=== PATIENT | male | born 1990 | race Caucasian/White ===

== ENCOUNTER 2019-08-05 08:02 | Emergency (ER) | payer OTHER, SELFPAY ==
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
[2019-08-05 08:04] VITALS: BP 140/66; PULSE 62; RESP 17; TEMP 36.9; O2SAT 97
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
== END 2019-08-05 09:20 | disposition home or self-care (01) ==
LOC: ANHED 09:24
PROVIDERS: Emergency Provider Emergency Medicine; PCP Family Medicine
DX: S50.02XA Contusion of left elbow, initial encounter (principal); S70.02XA Contusion of left hip, initial encounter; V49.40XA Driver injured in collision with unspecified motor vehicles in traffic accident, initial encounter
CPT/HCPCS: 73070; 73090; 73502; 73521; 99284

== ENCOUNTER 2021-05-07 13:45 | Outpatient (CLI) | payer OTHER, SELFPAY ==
[2021-05-07 13:58] LABS: Hematocrit 44.3 % (40.0-54.0); Hemoglobin 13.9 g/dL (14.0-18.0); Mean Corpuscular HGB Conc 31.4 g/dL (32.0-36.0); Mean Corpuscular Hemoglobin 22.6 pg (27.0-31.0); Mean Corpuscular Volume 72.1 fL (78.0-102.0); Mean Platelet Volume 8.9 fl (8.7-11.0); Platelet Count Result 245 K/mm3 (150-420); Red Blood Count 6.14 M/mm3 (4.70-6.10); White Blood Count 7.8 K/mm3 (4.8-10.8)
[2021-05-07 16:33] LABS: Alanine Aminotransferase 31 U/L (16-63); Albumin Level 4.4 g/dL (3.4-5.0); Alkaline Phosphatase 73 U/L (46-116); Anion Gap 11 mmol/L (8-16); Aspartate Amino Transferase 18 U/L (15-37); Bilirubin,Total 0.7 mg/dL (0.00-1.00); Blood Urea Nitrogen 11 mg/dL (7-18); Calcium 8.9 mg/dL (8.5-10.1); Carbon Dioxide 30 mmol/L (21-32); Chloride 101 mmol/L (98-108); Cholesterol 155 mg/dL (0-200); Estimated Glomerular Filt Rate > 60; Glucose 86 mg/dL (70-99); HDL Direct 45 mg/dL (40-60); LDL Cholesterol Calculated 82 mg/dL (<130); Osmolality Calculated 292 mOsm/kg (285-295); Potassium 4.1 mmol/L (3.5-5.1); Sodium 142 mmol/L (136-145); Total Protein 7.6 g/dL (6.4-8.2); Triglycerides 139 mg/dL (0-150)
[2021-05-07 16:53] LABS: Thyroid Stimulating Hormone Reflex 1.55 u/IU/mL (0.36-3.74)
== END 2021-05-07 13:46 | disposition home or self-care (01) ==
LOC: CHSLAB 13:50
PROVIDERS: PCP Family Medicine; Visit Provider Family Medicine
DX: Z00.00 Encounter for general adult medical examination without abnormal findings (principal); E11.9 Type 2 diabetes mellitus without complications
CPT/HCPCS: 36415; 80053; 80061; 84443; 85027

== ENCOUNTER 2021-06-28 07:39 | Outpatient (CLI) | payer OTHER, SELFPAY ==
--- NOTE | 2021-07-13 12:52 | WPDHOMESLEEP ---
Sleep Study - Home Unattended Date of Study: 06/28/21 <Winifred Longoria DO - Last Filed: 07/13/21 13:10> Ordering Provider: Kirk Agee DO <Winifred Longoria, DO - Last Filed: 07/13/21 13:10> Interpreting Provider: Winifred Longoria DO <Winifred Longoria, DO - Last Filed: 07/13/21 13:10> Home Sleep Study Type: Apnea Link Air <Winifred Longoria DO - Last Filed: 07/13/21 13:10> Height: 1.83 m <Winifred Longoria DO - Last Filed: 07/13/21 13:10> Weight: 108.862 kg <Winifred Longoria DO - Last Filed: 07/13/21 13:10> Body Mass Index: 32.5 <Winifred Longoria DO - Last Filed: 07/13/21 13:10> Neck Circumference (inches): 17 <Winifred Longoria DO - Last Filed: 07/13/21 13:10> [place]: 17 <Winifred Longoria DO - Last Filed: 07/13/21 13:10> Reason for Sleep Study Unrefreshing sleep, daytime somnolence, morning headaches and loud snoring <Winifred Longoria DO - Last Filed: 07/13/21 13:10> Sleep History The patient is a 31-year-old male with generalized anxiety disorder who had a home sleep test ordered by his primary care physician due to unrefreshing sleep and daytime somnolence. the patient was recently started on Zoloft 50 mg. the patient occasionally awakens from sleep short of breath. He occasionally awakens at night with heartburn, belching or cough. He frequently snores loud enough that others complain. He occasionally has trouble sleeping when he has a cold. He occasionally wakes up gasping for air throughout the night. He occasionally has breathing problems at night observed by others. He occasionally sweats excessively at night. He frequently notices heart palpitations or irregular beats throughout the night. He denies falling asleep during the day but occasionally falls asleep while driving. He denies sleep paralysis and cataplexy. He rarely experiences vivid dreamlike scenes upon awakening or falling asleep. He frequently feels afraid to go to sleep. He occasionally has nightmares. He occasionally remembers his dreams. He frequently has thoughts racing through his mind. He occasionally feels sad or depressed and is frequently anxious. He occasionally notices parts of his body jerk. He occasionally kicks during the night. He rarely experiences crawling and aching feelings in his legs as well as leg pain during the night. He frequently grinds his teeth during sleep and rarely wakes with jaw pain. He is rarely bothered by pain during the day but is occasionally awakened by pain during the night. He occasionally wakes up feeling stiff in the morning with sore and achy muscles. The patient goes to bed at 10:00 p.m. on the weekdays and 11:00 p.m. on the weekends. It takes him 30 minutes to fall asleep. He wakes up 5-10 times per night. When he awakens, he will toss and turn until he falls back asleep. He can fall asleep within a few minutes. He wakes up between 6 and 7:00 a.m. on the weekdays and 7:00 a.m. on the weekends. He usually gets 6 hours of sleep per night. He will stay in bed for 5 minutes after awakening in the morning. He currently lives with his and 3 sons. He does not consume any caffeinated beverages within 2 hours of going to bed. He does not engage in physical exercise before bedtime. He does watch television before falling asleep. He does not take naps in the afternoon or the evening. He drinks 1-2 caffeinated beverages per day. He quit smoking several years ago. He denies alcohol and recreational drug use. <Winifred Longoria DO - Last Filed: 07/13/21 13:10> [facility] Past Medical History Medical History: Medical History WAN (generalized anxiety disorder) <Winifred Longoria DO - Last Filed: 07/13/21 13:10> Surgical History Surgical History: Surgical History No history of
[2021-07-13 13:01] VITALS: BMI 32.5
== END 2021-06-29 10:39 | disposition home or self-care (01) ==
LOC: ANHCSM 07:40
PROVIDERS: PCP Family Medicine; Visit Provider Family Medicine
DX: G47.30 Sleep apnea, unspecified (principal); G47.33 Obstructive sleep apnea (adult) (pediatric)
CPT/HCPCS: 95806

== ENCOUNTER 2022-05-16 16:11 | Outpatient (CLI) | payer OTHER, SELFPAY ==
[2022-05-16 16:23] LABS: Hematocrit 40.9 % (40.0-54.0); Mean Corpuscular HGB Conc 31.8 g/dL (32.0-36.0); Mean Corpuscular Volume 72.4 fL (78.0-102.0); Mean Platelet Volume 8.4 fl (8.7-11.0); Platelet Count Result 221 K/mm3 (150-420); Red Blood Count 5.65 M/mm3 (4.70-6.10); White Blood Count 7.3 K/mm3 (4.8-10.8)
[2022-05-16 17:10] LABS: Alanine Aminotransferase 38 U/L (16-63); Albumin Level 4.2 g/dL (3.4-5.0); Alkaline Phosphatase 71 U/L (46-116); Anion Gap 8 mmol/L (8-16); Aspartate Amino Transferase 22 U/L (15-37); Bilirubin,Total 0.6 mg/dL (0.00-1.00); Blood Urea Nitrogen 11 mg/dL (7-18); Calcium 9.1 mg/dL (8.5-10.1); Carbon Dioxide 27 mmol/L (21-32); Chloride 103 mmol/L (98-108); Estimated Glomerular Filt Rate > 60; Glucose 99 mg/dL (70-99); Osmolality Calculated 285 mOsm/kg (285-295); Potassium 3.9 mmol/L (3.5-5.1); Sodium 138 mmol/L (136-145); Total Protein 7.1 g/dL (6.4-8.2)
== END 2022-05-16 16:12 | disposition home or self-care (01) ==
LOC: CHSLAB 16:13
PROVIDERS: PCP Family Medicine; Visit Provider Family Medicine
DX: F41.1 Generalized anxiety disorder (principal)
CPT/HCPCS: 36415; 80053; 85027

== ENCOUNTER 2022-08-16 14:49 | Outpatient (CLI) | payer OTHER, SELFPAY ==
[2022-08-16 15:13] LABS: Basophils Absolute Auto 0.03 K/mm3 (0.00-0.10); Basophils Percent Auto 0.4 % (0.0-1.0); Eosinophils Absolute Auto 0.16 K/mm3 (0.02-0.50); Eosinophils Percent Auto 2.1 % (1.0-6.0); Hematocrit 40.1 % (40.0-54.0); Immature Granulocyte Absolute 0.02 K/mm3 (0.00-0.00); Immature Granulocyte Percent A 0.3 % (0.0-0.0); Lymphocytes Absolute Auto 2.19 K/mm3 (1.10-4.50); Mean Corpuscular HGB Conc 32.4 g/dL (32.0-36.0); Mean Corpuscular Hemoglobin 23.5 pg (27.0-31.0); Mean Corpuscular Volume 72.4 fL (78.0-102.0); Monocytes Absolute Auto 0.69 K/mm3 (0.10-0.90); Monocytes Percent Auto 9.2 % (2.0-11.0); Neutrophils Absolute Auto 4.5 K/mm3 (1.7-7.2); Platelet Count Result 233 K/mm3 (150-420); Red Blood Count 5.54 M/mm3 (4.70-6.10); Red Cell Distribution Width 14.7 % (11.6-14.4); White Blood Count 7.5 K/mm3 (4.8-10.8)
== END 2022-08-16 14:50 | disposition home or self-care (01) ==
LOC: CHSLAB 14:51
PROVIDERS: PCP Family Medicine; Visit Provider Family Medicine
DX: D64.9 Anemia, unspecified (principal)
CPT/HCPCS: 36415; 85025

== ENCOUNTER 2023-04-28 11:22 | Outpatient (CLI) | payer OTHER, SELFPAY ==
[2023-04-28 11:50] LABS: Basophils Absolute Auto 0.06 K/mm3 (0.00-0.10); Basophils Percent Auto 0.9 % (0.0-1.0); Eosinophils Absolute Auto 0.26 K/mm3 (0.02-0.50); Eosinophils Percent Auto 3.9 % (1.0-6.0); Hematocrit 44.9 % (40.0-54.0); Hemoglobin 14.2 g/dL (14.0-18.0); Immature Granulocyte Absolute 0.01 K/mm3 (0.00-0.00); Immature Granulocyte Percent A 0.1 % (0.0-0.0); Lymphocytes Absolute Auto 2.19 K/mm3 (1.10-4.50); Lymphocytes Percent Auto 32.8 % (18.0-42.0); Mean Corpuscular HGB Conc 31.6 g/dL (32.0-36.0); Mean Corpuscular Hemoglobin 23.4 pg (27.0-31.0); Mean Corpuscular Volume 73.8 fL (78.0-102.0); Mean Platelet Volume 8.8 fl (8.7-11.0); Monocytes Absolute Auto 0.47 K/mm3 (0.10-0.90); Neutrophils Absolute Auto 3.7 K/mm3 (1.7-7.2); Neutrophils Percent Auto 55.3 % (50.0-70.0); Platelet Count Result 232 K/mm3 (150-420); Red Blood Count 6.08 M/mm3 (4.70-6.10); Red Cell Distribution Width 14.6 % (11.6-14.4); White Blood Count 6.7 K/mm3 (4.8-10.8)
[2023-04-28 12:43] LABS: Alanine Aminotransferase 29 U/L (16-63); Albumin Level 4.1 g/dL (3.4-5.0); Alkaline Phosphatase 85 U/L (46-116); Anion Gap 5 mmol/L (8-16); Aspartate Amino Transferase 19 U/L (15-37); Bilirubin,Total 0.5 mg/dL (0.00-1.00); Blood Urea Nitrogen 9 mg/dL (7-18); Calcium 8.7 mg/dL (8.5-10.1); Carbon Dioxide 31 mmol/L (21-32); Chloride 105 mmol/L (98-108); Estimated Glomerular Filt Rate > 60; Ferritin 166 ng/mL (26-388); Glucose 97 mg/dL (70-99); Osmolality Calculated 290 mOsm/kg (285-295); Potassium 4.3 mmol/L (3.5-5.1); Sodium 141 mmol/L (136-145); Total Protein 7.3 g/dL (6.4-8.2)
== END 2023-04-28 11:23 | disposition home or self-care (01) ==
LOC: CHSLAB 11:26
PROVIDERS: PCP Family Medicine; Visit Provider Family Medicine
DX: G25.81 Restless legs syndrome (principal); D50.9 Iron deficiency anemia, unspecified
CPT/HCPCS: 36415; 80053; 82728; 85025

== ENCOUNTER 2025-01-09 09:05 | Outpatient (CLI) | payer OTHER, SELFPAY ==
[2025-01-09 09:18] LABS: Basophils Absolute Auto 0.05 K/mm3 (0.00-0.10); Basophils Percent Auto 0.5 % (0.0-1.0); Eosinophils Absolute Auto 0.39 K/mm3 (0.02-0.50); Eosinophils Percent Auto 4.3 % (1.0-6.0); Hematocrit 46.2 % (40.0-54.0); Hemoglobin 14.2 g/dL (14.0-18.0); Immature Granulocyte Absolute 0.02 K/mm3 (0.00-0.00); Immature Granulocyte Percent A 0.2 % (0.0-0.0); Lymphocytes Absolute Auto 2.12 K/mm3 (1.10-4.50); Lymphocytes Percent Auto 23.2 % (18.0-42.0); Mean Corpuscular HGB Conc 30.7 g/dL (32-36); Mean Corpuscular Hemoglobin 22.6 pg (27.0-31.0); Mean Corpuscular Volume 73.7 fL (78.0-102.0); Mean Platelet Volume 8.8 fl (8.7-11.0); Monocytes Absolute Auto 0.71 K/mm3 (0.10-0.90); Monocytes Percent Auto 7.8 % (2.0-11.0); Neutrophils Absolute Auto 5.86 K/mm3 (1.70-7.20); Platelet Count Result 237 K/mm3 (150-420); Red Blood Count 6.27 M/mm3 (4.70-6.10); Red Cell Distribution Width 14.9 % (11.6-14.4); White Blood Count 9.2 K/mm3 (4.8-10.8)
[2025-01-09 15:41] LABS: Alanine Aminotransferase 22 U/L (6-50); Albumin Level 4.5 g/dL (3.5-5.1); Alkaline Phosphatase 63 U/L (38-126); Anion Gap 3 mmol/L (4-12); Aspartate Amino Transferase 31 U/L (17-59); Blood Urea Nitrogen 10 mg/dL (9-20); Calcium 8.6 mg/dL (8.4-10.2); Carbon Dioxide 31 mmol/L (22-30); Chloride 105 mmol/L (98-107); Cholesterol 159 mg/dL (0-200); Estimated Glomerular Filt Rate > 60; Glucose 98 mg/dL (65-110); HDL Direct 35 mg/dL; LDL Cholesterol Calculated 86 mg/dL (<130); Osmolality Calculated 287 mOsm/kg (285-295); Potassium 4.6 mmol/L (3.4-5.0); Sodium 139 mmol/L (137-145); Total Protein 6.9 g/dL (6.3-8.2); Triglycerides 189 mg/dL (<150)
== END 2025-01-09 09:06 | disposition home or self-care (01) ==
LOC: CHSLAB 09:06
PROVIDERS: PCP Family Medicine; Visit Provider Family Medicine
DX: F41.1 Generalized anxiety disorder (principal)
CPT/HCPCS: 36415; 80053; 80061; 85025